=== PATIENT | female | born 1950 | race Caucasian/White ===

== ENCOUNTER → 2020-10-29 | Outpatient (CLI) | payer MEDICARE, OTHER ==
--- NOTE | 2020-10-29 15:01 | CT ---
EXAMINATION TYPE: CT brain wo con DATE OF EXAM: 10/29/2020 HISTORY: sudden onset headache CT DLP: 1017.9 mGycm. Automated Exposure Control for Dose Reduction was Utilized. TECHNIQUE: CT scan of the head is performed without contrast. COMPARISON: MRI brain January 27, 2010 FINDINGS: There is no acute intracranial hemorrhage or midline shift identified. There is mild to m oderate diffuse ventricular and sulcal prominence consistent with diffuse cerebral atrophy greatest o joellen the bilateral frontal lobes. There is low-attenuation in the deep and periventricular white amos er consistent with chronic small vessel ischemic change. Patchy cerumen in bilateral external audito ry canals. Mucosal thickening and partial opacification bilateral ethmoid sinuses along with inferior right frontal sinus. Globes are intact bilaterally. IMPRESSION: No acute intracranial hemorrhage or midline shift. There is mild to moderate diffuse ce rebral atrophy and chronic small vessel ischemic change identified with some interval progression fro m 2009 MRI. Acute on chronic paranasal sinus disease redemonstrated.
== END | disposition home or self-care (01) ==
LOC: RADCTMAIN 14:35
PROVIDERS: ATTEND Family Medicine
DX: G31.9 Degenerative disease of nervous system, unspecified (principal); I67.82 Cerebral ischemia
CPT/HCPCS: 70450

== ENCOUNTER 2021-01-09 09:05 | Emergency (ER) | payer MEDICARE, OTHER ==
[2021-01-09] MEDS ORDERED: ONDANSETRON 4 MG/2 ML VIAL IVP STA (09:22)
[2021-01-09] MEDS ORDERED: SODIUM CHLORIDE 0.9% 1,000 ML IV ONE (09:22)
[2021-01-09 09:47] LABS: Basophils % (A) 0 %; Eosinophils % (A) 0 %; HCT 38.9 % (34.0-46.0); HGB 12.9 gm/dL (11.4-16.0); Lymphocytes # (A) 0.5 k/uL (1.0-4.8); Lymphocytes % (A) 13 %; MCHC 33.3 g/dL (31.0-37.0); MCV 90.1 fL (80.0-100.0); Mean Platelet Volume 7.7; Monocytes # (A) 0.1 k/uL (0-1.0); Monocytes % (A) 3 %; Neutrophils # (A) 3.5 k/uL (1.3-7.7); Neutrophils % (A) 82 %; Platelet Count 167 k/uL (150-450); RBC 4.31 m/uL (3.80-5.40); RDW 13.4 % (11.5-15.5); WBC 4.2 k/uL (3.8-10.6)
[2021-01-09 09:59] LABS: ALT 32 U/L (4-34); AST 44 U/L (14-36); African American GFR (CKD) >90 (>60 ml/min/1.73 sqM); Albumin 3.3 g/dL (3.5-5.0); Alkaline Phosphatase 48 U/L (38-126); Anion Gap 7 mmol/L; Blood Urea Nitrogen 15 mg/dL (7-17); Carbon Dioxide 26 mmol/L (22-30); Chloride 104 mmol/L (98-107); Glucose 118 mg/dL (74-99); Magnesium 1.6 mg/dL (1.6-2.3); Non-African American GFR(CKD) 85 (>60 ml/min/1.73 sqM); Potassium 3.5 mmol/L (3.5-5.1); Sodium 137 mmol/L (137-145); Total Bilirubin 0.4 mg/dL (0.2-1.3)
[2021-01-09] MEDS ORDERED: ACETAMINOPHEN TAB 500 MG TAB PO STA (10:01)
--- NOTE | 2021-01-09 10:02 | XR ---
EXAMINATION TYPE: XR chest 1V portable DATE OF EXAM: 01/09/2021 COMPARISON: 08/08/2014 HISTORY: Cough TECHNIQUE: Single frontal view of the chest is obtained. FINDINGS: Heart size is stable. There is hyperinflation. Diffuse osteopenia. Arthropathy shoulders. Interstitium is stable. Minimal subsegmental changes at the lung bases. IMPRESSION: Basilar atelectasis versus early infiltrate correlate clinically
[2021-01-09] MEDS ORDERED: DEXAMETHASONE SOD PHOSPHATE 10 MG/ML 1 ML VIAL IVP STA (10:20)
--- NOTE | 2021-01-09 10:27 | ED ---
Weakness HPI - General Chief complaint: Weakness Stated complaint: JAROCHO/Covid Source: patient, EMS Mode of arrival: EMS Limitations: no limitations - History of Present Illness Initial comments: 70-year-old female with past history of hypertension who presents to the emergency department for weakness. States she's been sick since the . She has had symptoms of weakness, fatigue, nausea with 1 episode of vomiting this morning. States she's had decrease in the amount that she is urinating. She has had a poor appetite. Admits to fevers. No diarrhea. Denies chest pain or abdominal pain. Has a history of mild asthma for which she occasionally uses her inhaler. Patient's echo revaccinated. No other alleviating, precipitating or modifying factors - Related Data Home Medications Medication Instructions Recorded Confirmed Albuterol Inhaler [Ventolin Hfa 2 puff INHALATION RT-Q6H PRN 01/09/21 01/09/21 Inhaler] Rizatriptan Odt [[employer]] 10 mg PO DAILY PRN 01/09/21 01/09/21 amLODIPine [Norvasc] 5 mg PO DAILY 01/09/21 01/09/21 amLODIPine [Norvasc] 5 mg PO HS PRN 01/09/21 01/09/21 Previous Rx's Medication Instructions Recorded Dexamethasone [Decadron] 6 mg PO DAILY #5 tablet 01/09/21 Allergies Allergy/AdvReac Type Severity Reaction Status Date / Time No Known Allergies Allergy Verified 01/09/21 10:12 Review of Systems ROS Statement: Those systems with pertinent positive or pertinent negative responses have been documented in the HPI. ROS Other: All systems not noted in ROS Statement are negative. Past Medical History Past Medical History: Hypertension History of Any Multi-Drug Resistant Organisms: None Reported Past Surgical History: Appendectomy, Section, Hysterectomy Past Psychological History: No Psychological Hx Reported Smoking Status: Former smoker Past Alcohol Use History: None Reported Past Drug Use History: None Reported General Exam Limitations: no limitations Course Vital Signs 01/09/21 09:08 Temperature 100.4 F H Pulse Rate 88 Respiratory 20 Rate Blood Pressure 141/89 O2 Sat by Pulse 96 Oximetry EKG Findings - EKG Comments: EKG Findings:: EKG demonstrates normal sinus rhythm with a ventricular rate of 84. MS interval 168. QRS 138. QTC of 446. There is a left bundle branch block. Negative for sgarbossa criteria Medical Decision Making - Medical Decision Making On arrival patient was placed into room 14. A thorough history and physical exam is performed. IV had been established by EMS. Patient is given 4 mg of zofran, a liter bolus of normal saline and a gram of Tylenol. Patient is diffusely wheezy. Does have albuterol inhaler at bedside for which I instructed her to use. Patient also given 10 mg of Decadron. Labs initiated. Chest x- ray performed which demonstrates basilar atelectasis rudely early infiltrate. Patient maintained saturations above 90% without increased work of breathing. She will be given Regen and discharged home. Follow-up with her doctor in 2-4 days. Return for any new or worsening symptoms - Lab Data Result diagrams: 01/09/21 09:39 01/09/21 09:39 Lab Results 01/09/21 01/09/21 Range/Units 09:39 09:39 WBC 4.2 (3.8-10.6) k/uL RBC 4.31 (3.80-5.40) m/uL Hgb 12.9 (11.4-16.0) gm/dL Hct 38.9 (34.0-46.0) % MCV 90.1 (80.0-100.0) fL MCH 30.0 (25.0-35.0) pg MCHC 33.3 (31.0-37.0) g/dL RDW 13.4 (11.5-15.5) % Plt Count 167 (150-450) k/uL MPV 7.7 Neutrophils % 82 % Lymphocytes % 13 % Monocytes % 3 % Eosinophils % 0 % Basophils % 0 % Neutrophils # 3.5 (1.3-7.7) k/uL Lymphocytes # 0.5 L (1.0-4.8) k/uL Monocytes # 0.1 (0-1.0) k/uL Eosinophils # 0.0 (0-0.7) k/uL Basophils # 0.0 (0-0.2) k/uL Sodium 137 (137-145) mmol/L Potassium 3.5 (3.5-5.1) mmol/L Chloride 104 (98-107) mmol/L Carbon Dioxide 26 (22-30) mmol/L Anion Gap 7 mmol/L BUN 15 (7-17) mg/dL Creatinine 0.72 (0.52-1.04) mg/dL Est GFR (CKD-EPI)AfAm >90 (>60 ml/min/1.73 sqM) Est GFR (CKD-EPI)NonAf 85 (>60 ml/min/1.73 sqM) Glucose 118 H (74-99) mg/dL Calcium 8.0 L (8.4-10.2) mg/dL Magnesium 1.6 (1.6-2.3) mg/dL Total Bilirubin 0.4 (0.2-1.3) mg/dL AST 44 H (14-36) U/L ALT 32 (4-34) U/L Alkaline Phosphatase 48 (38-126) U/L Total Protein 6.0 L (6.3-8.2) g/dL Albumin 3.3 L (3.5-5.0) g/dL Disposition Clinical Impression: COVID-19 Disposition: HOME SELF-CARE Condition: Stable Instructions (If sedation given, give patient instructions): Coronavirus Disease 2019 (COVID-19) Additional Instructions: you received antibodies today. Please take the steroids daily and use your inhaler every 4 hours. Follow-up with your doctor in 2-4 days. Return to the emergency room for any new or worsening symptoms Prescriptions: Dexamethasone [Decadron] 6 mg PO DAILY #5 tablet Is patient prescribed a controlled substance at d/c from ED?: No Referrals: Margaret Hernandes MD [Primary Care Provider] - 1-2 days
[2021-01-09] MEDS ORDERED: SODIUM CHLORIDE 0.9% 50 ML IVPB ONE (10:30)
[2021-01-09] MEDS ORDERED: BAMLANIVIMAB (EUA) 700 MG, ETESEVIMAB (EUA) 1,400 MG in SODIUM CHLORIDE 0.9% 50 ML IVPB ONE (11:00)
[2021-01-09 13:50] VITALS: BP 136/80; PULSE 83; RESP 18; TEMP 97.8
== END 2021-01-09 13:11 | disposition home or self-care (01) ==
LOC: EC 09:05
DX: U07.1 COVID-19 (principal); I10 Essential (primary) hypertension; Z90.49 Acquired absence of other specified parts of digestive tract; Z90.710 Acquired absence of both cervix and uterus; Z87.891 Personal history of nicotine dependence
CPT/HCPCS: 99285 ×2; 96375 ×3; 96361 ×2; 36415; 93005; 80053; 83735; 85025; 71045; M0245; J1100; J2405; J3490; 96374